=== PATIENT | female | born 1955 | race Caucasian/White ===

== ENCOUNTER 2023-09-02 08:07 | Outpatient (CLI) | payer MEDICARE | END 2023-09-02 08:08 | disposition home or self-care (01) | LOC: CSHCT 08:07 | PROVIDERS: ATTEND Internal Medicine Hematology & Oncology | DX: C18.9 Malignant neoplasm of colon, unspecified (principal); Z90.5 Acquired absence of kidney; N28.1 Cyst of kidney, acquired; N83.8 Other noninflammatory disorders of ovary, fallopian tube and broad ligament; Z98.890 Other specified postprocedural states; K76.0 Fatty (change of) liver, not elsewhere classified; K86.89 Other specified diseases of pancreas; M85.9 Disorder of bone density and structure, unspecified | CPT/HCPCS: 71260; 74177; 82565 ==